=== PATIENT | male | born 1985 | race Caucasian/White ===

== ENCOUNTER 2020-09-30 18:49 | Emergency (ER) | payer OTHER, SELFPAY ==
--- NOTE | 2020-09-30 | ECG_ITS ---
Test Reason : CHEST PAIN Blood Pressure : / mmHG Vent. Rate : 060 BPM Atrial Rate : 060 BPM P-R Int : 176 ms QRS Dur : 090 ms QT Int : 414 ms P-R-T Axes : 033 004 036 degrees QTc Int : 414 ms Normal sinus rhythm with sinus arrhythmia Possible Left atrial enlargement Borderline ECG No previous ECGs available Referred By: Generic ED Physician Electronically Signed By:ISIAH MERCER MD
--- NOTE | ~2020-09-30 | XR_ITS ---
EXAMINATION: XR CHEST CLINICAL INFORMATION: Chest pain. COMPARISON: None TECHNIQUE: 2 views of the chest were obtained. FINDINGS: No significant abnormality is noted involving the heart, lungs, mediastinum, bony thorax or soft tissues. XR/XR chest 2V IMPRESSION: No acute cardiopulmonary process.
[2020-09-30 19:10] VITALS: BP 140/69; PULSE 86; RESP 18; TEMP 37; O2SAT 98; BMI 27.7
[2020-09-30 20:36] LABS: MANUAL DIFF FLAG NO
[2020-09-30 20:37] LABS: Basophils Percent Auto 0.4 % (0-2); Eosinophils Absolute Auto 0.1 X10*3/uL (0.0-0.4); Eosinophils Percent Auto 1.2 % (0-4); Hematocrit 51.5 % (42-52); Hemoglobin 18.1 g/dl (14.0-18.0); Imm Gran Abs Auto 0.03 X10*3/uL (0.00-0.03); Imm Gran Pct Auto 0.4 % (0.0-0.4); Lymphocytes Percent Auto 39.9 % (20-40); Mean Corpuscular HGB Conc 35.1 g/dl (31.0-36.0); Mean Corpuscular Hemoglobin 30.9 pg (27.0-33.0); Monocytes Absolute Auto 0.7 X10*3/uL (0.1-1.2); Monocytes Percent Auto 8.8 % (2-11); Neutrophils Absolute Auto 3.7 X10*3/uL (2.0-8.3); Neutrophils Percent Auto 49.3 % (45-73); Platelet Count 259 X10*3/uL (160-400); Red Blood Count 5.85 X10*6/uL (4.60-5.80); Red Cell Distribution Width 11.6 % (11.0-16.0); White Blood Count 7.4 X10*3/uL (4.8-10.8)
[2020-09-30 21:01] LABS: Anion Gap 11 (12-20); Blood Urea Nitrogen 12 mg/dL (9-16); Calcium 9.2 mg/dL (8.4-10.2); Carbon Dioxide 29 mmol/L (22-29); Chloride 105 mmol/L (96-108); Creatinine Clr Calc Pharmacy 123.2; Estimated Glomerular Filt Rate > 60; Glucose Random 86 mg/dL (60-115); Potassium 4.4 mmol/L (3.3-5.1); Sodium 141 mmol/L (135-145)
[2020-09-30 21:09] LABS: Troponin-I High Sensitivity < 3.5 ng/L (<3.5-35.0)
[2020-09-30 21:56] VITALS: BP 128/83; PULSE 67; RESP 18; TEMP 36.7; O2SAT 99
--- NOTE | 2020-09-30 21:57 | ED_ITS ---
HPI - Chest Pain General Chief Complaint: Chest Pain Stated Complaint: chest pain Time Seen by Provider: 09/30/20 21:28 Source: patient Mode of arrival: ambulatory History of Present Illness HPI narrative: This is a 34-year-old male without significant past medical history who presents with 2 episodes of left-sided, pinching type chest pain that worsened with deep inspiration but denies any association with dizziness, radiation, nausea, shortness of breath, or diaphoresis. He states that these episodes have occurred while he is at work and denies any recent travel or calf swelling/pain. MD complaint: chest pain Related Data Allergies Allergy/AdvReac Type Severity Reaction Status Date / Time No Known Allergies Allergy Unverified 04/04/20 19:37 [No Known Allergies*] Review of Systems Review of Systems: Pertinent positives and negatives as stated in HPI 10 point review of systems is otherwise negative. PMFSH Past Medical History Source: nursing notes reviewed Medical History No known health problems Social History Social History Advance Directives: No Advance Directives Information Provided: No Physical Exam Vital Signs: Vital Signs: Last Vital Signs Temp 98.0 F 09/30/20 21:56 Pulse 67 09/30/20 21:56 Resp 18 09/30/20 21:56 BP 128/83 09/30/20 21:56 Pulse Ox 99 09/30/20 21:56 Body Mass Index 27.7 VITAL SIGNS: Reviewed. GENERAL: Well developed, well nourished, in no acute distress. HEAD: Normocephalic/atraumatic, NOSE: Nares patent bilateral OROPHARYNX: no oral lesions noted, posterior pharynx clear NECK: Supple, no adenopathy LUNGS: Normal breath sounds. No adventitious sounds or accessory muscle use. SpO2<98> CHEST WALL: No pain on palpation over left chest, no crepitus, no deformities CARDIOVASCULAR: Regular rate and rhythm without noted murmurs ABDOMEN: Soft, non-tender, non-distended with bowel sounds. NEUROLOGIC: Alert and oriented x 4. Course Course Course Narrative: This is a 34-year-old male with history and clinical presentation most consistent with costochondritis and doubt cardiopulmonary etiology or PE. On review of all investigations there are no acute findings to point towards the latter differentials. Patient will be discharged in stable condition. MDM - Chest Pain Lab Data Result diagrams: 09/30/20 20:30 09/30/20 20:30 Labs: Lab Results 09/30/20 09/30/20 09/30/20 Range/Units 20:30 20:30 20:30 WBC 7.4 (4.8-10.8) X10*3/uL RBC 5.85 H (4.60-5.80) X10*6/uL Hgb 18.1 H (14.0-18.0) g/dl Hct 51.5 (42-52) % MCV 88.0 (80-98) fL MCH 30.9 (27.0-33.0) pg MCHC 35.1 (31.0-36.0) g/dl RDW 11.6 (11.0-16.0) % Plt Count 259 (160-400) X10*3/uL MPV 10.0 (9.4-12.4) fL Immature Gran % (Auto) 0.4 (0.0-0.4) % Neut % (Auto) 49.3 (45-73) % Lymph % (Auto) 39.9 (20-40) % [place] % (Auto) 8.8 (2-11) % Eos % (Auto) 1.2 (0-4) % Baso % (Auto) 0.4 (0-2) % Lymph # (Auto) 3.0 (1.2-4.9) X10*3/uL [place] # (Auto) 0.7 (0.1-1.2) X10*3/uL Eos # (Auto) 0.1 (0.0-0.4) X10*3/uL Baso # (Auto) 0.0 (0.0-0.2) X10*3/uL Abs Immat Gran (auto) 0.03 (0.00-0.03) X10*3/uL Absolute Neuts (auto) 3.7 (2.0-8.3) X10*3/uL Absolute Nucleated RBC 0.000 (0.0-0.012) X10*3/uL Nucleated RBC % (auto) 0.0 (0.0-0.2) /100WBC D-Dimer < 200 NG/ML Hold Blue Top SEE NOTE Sodium 141 (135-145) mmol/L Potassium 4.4 (3.3-5.1) mmol/L Chloride 105 (96-108) mmol/L Carbon Dioxide 29 (22-29) mmol/L Anion Gap 11 L (12-20) BUN 12 (9-16) mg/dL Creatinine 0.83 (0.5-1.4) mg/dL Estim Creat Clear Calc 123.2 Estimated GFR > 60 Random Glucose 86 (60-115) mg/dL Calcium 9.2 (8.4-10.2) mg/dL Troponin I High Sens (<3.5-35.0) ng/L 09/30/20 Range/Units 20:30 WBC (4.8-10.8) X10*3/uL RBC (4.60-5.80) X10*6/uL Hgb (14.0-18.0) g/dl Hct (42-52) % MCV (80-98) fL MCH (27.0-33.0) pg MCHC (31.0-36.0) g/dl RDW (11.0-16.0) % Plt Count (160-400) X10*3/uL MPV (9.4-12.4) fL Immature Gran % (Auto) (0.0-0.4) % Neut % (Auto) (45-73) % Lymph % (Auto) (20-40) % [place] % (Auto) (2-11) % Eos % (Auto) (0-4) % Baso % (Auto) (0-2) % Lymph # (Auto) (1.2-4.9) X10*3/uL [place] # (Auto) (0.1-1.2) X10*3/uL Eos # (Auto) (0.0-0.4) X10*3/uL Baso # (Auto) (0.0-0.2) X10*3/uL Abs Immat Gran (auto) (0.00-0.03) X10*3/uL Absolute Neuts (auto) (2.0-8.3) X10*3/uL Absolute Nucleated RBC (0.0-0.012) X10*3/uL Nucleated RBC % (auto) (0.0-0.2) /100WBC D-Dimer NG/ML Hold Blue Top Sodium (135-145) mmol/L Potassium (3.3-5.1) mmol/L Chloride (96-108) mmol/L Carbon Dioxide (22-29) mmol/L Anion Gap (12-20) BUN (9-16) mg/dL Creatinine (0.5-1.4) mg/dL Estim Creat Clear Calc Estimated GFR Random Glucose (60-115) mg/dL Calcium (8.4-10.2) mg/dL Troponin I High Sens < 3.5 (<3.5-35.0) ng/L Discharge Plan Discharge Clinical Impression: Atypical chest pain, Acute costochondritis Patient Disposition: Home, Self-Care Instructions: Chest Pain (ED), Costochondritis (ED) Additional Instructions: Recommend using [id number] Tylenol/ibuprofen for pain control as directed on the outside packaging. There is a possibility that this is acid reflux and recommend utilizing zgut-ehy-ohqdvic antacids, Tums/Rolaids/Mylanta. Please follow-up with your primary care provider in the next 2-3 days. Do not hesitate to return to the emergency department for any acute worsening of your symptoms. Referrals: Physician,Unknown [Primary Care Provider] - 2 days Stand Alone Forms: Work/School Release
[2020-09-30 22:07] LABS: D Dimer < 200 NG/ML
[2020-09-30 22:33] VITALS: PULSE 67
== END 2020-09-30 22:33 | disposition home or self-care (01) ==
PROVIDERS: Emergency Provider Student in an Organized Health Care Education/Training Program
DX: R07.89 Other chest pain (principal); M94.0 Chondrocostal junction syndrome [Tietze]
CPT/HCPCS: 36415; 71046; 80048; 84484; 85025; 85379; 93005; 99283; 99284

== ENCOUNTER 2022-01-11 20:36 | Emergency (ER) | payer OTHER, SELFPAY ==
--- NOTE | ~2022-01-11 | XR_ITS ---
EXAMINATION: XR cervical spine 3V, XR thoracic spine 2V CLINICAL INFORMATION: Reason for Exam pain COMPARISON: None. TECHNIQUE: 3 view series thoracic spine; 4 view series cervical spine. FINDINGS: Cervical spine: Lateral view demonstrates the spine from craniocervical junction to the level of T1. Vertebral body height and alignment are normal in appearance. No gross prevertebral soft tissue inflammatory changes identified. The visualized lung apices are clear. No arthropathic changes identified. Thoracic spine: The upper thoracic spine is suboptimally visualized on the lateral view secondary to overlying opacities. The visualized thoracic vertebral bodies are normal in height, spacing and alignment. Minimal convex rightward curvature centered at the thoracolumbar junction and most likely represents curvature related to positioning. Visualized ribs and lungs are normal in appearance. No paraspinous masses or gross soft tissue inflammatory changes identified. Visualized bowel gas pattern demonstrates no abnormalities. XR/XR thoracic spine 2V IMPRESSION: Cervical spine: *No acute abnormalities of the cervical spine. No cervical arthropathic changes or cervical spondylosis identified. Thoracic spine: No acute abnormalities identified.
--- NOTE | ~2022-01-11 | XR_ITS ---
EXAMINATION: XR cervical spine 3V, XR thoracic spine 2V CLINICAL INFORMATION: Reason for Exam pain COMPARISON: None. TECHNIQUE: 3 view series thoracic spine; 4 view series cervical spine. FINDINGS: Cervical spine: Lateral view demonstrates the spine from craniocervical junction to the level of T1. Vertebral body height and alignment are normal in appearance. No gross prevertebral soft tissue inflammatory changes identified. The visualized lung apices are clear. No arthropathic changes identified. Thoracic spine: The upper thoracic spine is suboptimally visualized on the lateral view secondary to overlying opacities. The visualized thoracic vertebral bodies are normal in height, spacing and alignment. Minimal convex rightward curvature centered at the thoracolumbar junction and most likely represents curvature related to positioning. Visualized ribs and lungs are normal in appearance. No paraspinous masses or gross soft tissue inflammatory changes identified. Visualized bowel gas pattern demonstrates no abnormalities. XR/XR cervical spine 3V IMPRESSION: Cervical spine: *No acute abnormalities of the cervical spine. No cervical arthropathic changes or cervical spondylosis identified. Thoracic spine: No acute abnormalities identified.
[2022-01-11 21:17] VITALS: BP 115/77; PULSE 88; RESP 18; TEMP 36.1; O2SAT 99; BMI 27.7
--- NOTE | 2022-01-11 22:40 | ED.NECK ---
HPI - Neck Pain/Injury General Chief Complaint: Neck Pain/Injury Stated Complaint: Neck and shoulder pain Time Seen by Provider: 01/11/22 22:31 Source: patient Mode of arrival: ambulatory Limitations: no limitations History of Present Illness HPI Narrative: 36-year-old male presents with 1 day of neck and left shoulder muscular pain. Woke up with muscle spasms after sleeping wrong. States that he cannot turn his neck or lift his arm because of the muscle pain. He does not report trauma, repetitive motion, or injury. Denies fevers, chills, nausea, vomiting, dizziness, lightheadedness, or weakness. complaint: neck pain Onset (ago): day(s) (1) Place: home Radiation: right lateral and right shoulder Severity: moderate Severity scale (1-10): 6 Quality: spasming Duration: constant Relieving factors: none Exacerbating factors: movement of extremity and movement of neck Context: unknown Associated symptoms: none Treatments prior to arrival: none Related Data Previous Rx's Medication Instructions Recorded cyclobenzaprine 10 mg tablet 10 mg PO TID PRN muscle spasm #14 01/11/22 tabs Allergies Allergy/AdvReac Type Severity Reaction Status Date / Time No Known Allergies Allergy Unverified 04/04/20 19:37 [No Known Allergies*] Review of Systems Review of Systems: Constitutional: No Fever, No Chills ENT/Mouth: No Ear Pain, No Hoarseness, No sore throat Eyes: No Eye Pain, No Swelling, No Redness, No Foreign Body Cardiovascular: No Chest Pain, No SOB Respiratory: No Cough, No Dyspnea Gastrointestinal: No Nausea, No Vomiting, No Diarrhea, No abdominal Pain Genitourinary: No Dysuria, No Hematuria Musculoskeletal: positive neck and left shoulder pain, No Myalgias, No Joint Swelling Skin: No Skin lacerations, No rash Neuro: No Weakness, No Numbness, No Paresthesias, No Loss of Consciousness, No Dizziness, No Headache Psych: No Anxiety/Panic, No Depression Heme/Lymph: no easy bruising, no Lymphadenopathy Endocrine: No Polyuria, No Polydipsia Yes all other systems are reviewed and are negative [facility] Past Medical History Attestation statement: The following information was validated with the patient. Source: old records reviewed Medical History No known health problems Social History Social History Alcohol intake: never Advance Directives: No Advance Directives Information Provided: No Physical Exam Vital Signs: Vital Signs: Last Vital Signs Temp 96.9 F 01/11/22 21:17 Pulse 88 01/11/22 21:17 Resp 18 01/11/22 21:17 BP 115/77 01/11/22 21:17 Pulse Ox 99 01/11/22 21:17 O2 Del Method 01/11/22 21:17 BMI result Body Mass Index 27.7 Appearance: Alert. Oriented X3. Mild distress. Eyes: Pupils equal, round and reactive to light. ENT: Pharynx normal. Neck: Neck supple. No vertebral tenderness. Spasming to the left trapezius. Mild torticollis noted. CVS: Normal heart rate and rhythm. Pulses normal. Respiratory: No respiratory distress. Breath sounds normal. Abdomen: Soft and nontender. Skin: Skin warm and dry. Normal skin color. Normal skin turgor. Extremities: No lower extremity edema. Gait well balanced well coordinated. Neuro: No motor deficit. No sensory deficit. Cranial nerves 2-12 intact Course Course Course Narrative: 36-year-old male presents with torticollis after sleeping wrong. Has some significant spasm to the trapezius to the left side. Patient does have full range of motion although painful because of spasming. I did try to reduce spasming with trigger point muscle release. Mildly effective. He does have full range of motion to all extremities. No crepitus. No tenderness to the vertebral spine. No nuchal rigidity. Brisk capillary refill and equal pulses to all extremities. No indication of cauda equina. Afebrile. Appears nontoxic. Cervical spine and thoracic spine x-rays are negative for acute findings. Plan is for cyclobenzaprine and Toradol injection. Was suggested that patient have physical therapy or massage therapy to help release muscle spasming. Patient verbalized understanding of and agrees plan of care discharge home. Verbalized understanding of signs and symptoms indicating need for emergent intervention. MDM - Neck Pain/Injury Differential Diagnosis Differential diagnosis: Likely disc disorder of cervical region and strain of neck muscle Medical Records Attestation: I reviewed the patient's medical records. Imaging Data Cervical and thoracic spine x-ray.: Attestation: I personally reviewed and interpreted this imaging study as follows: Radiologist's impression: EXAMINATION: XR cervical spine 3V, XR thoracic spine 2V CLINICAL INFORMATION: Reason for Exam pain COMPARISON: None. TECHNIQUE: 3 view series thoracic spine; 4 view series cervical spine. FINDINGS: Cervical spine: Lateral view demonstrates the spine from craniocervical junction to the level of T1. Vertebral body height and alignment are normal in appearance. No gross prevertebral soft tissue inflammatory changes identified. The visualized lung apices are clear. No arthropathic changes identified. Thoracic spine: The upper thoracic spine is suboptimally visualized on the lateral view secondary to overlying opacities. The visualized thoracic vertebral bodies are normal in height, spacing and alignment. Minimal convex rightward curvature centered at the thoracolumbar junction and most likely represents curvature related to positioning. Visualized ribs and lungs are normal in appearance. No paraspinous masses or gross soft tissue inflammatory changes identified. Visualized bowel gas pattern demonstrates no abnormalities. XR/XR cervical spine 3V IMPRESSION: Cervical spine: *No acute abnormalities of the cervical spine. No cervical arthropathic changes or cervical spondylosis identified. ? Thoracic spine: No acute abnormalities identified. ? Discharge Plan Discharge Clinical Impression: Strain of neck muscle, Torticollis Patient Disposition: Home, Self-Care Instructions: Cervical Strain (ED), Muscle Strain (ED), Spasmodic Torticollis (ED) Additional Instructions: You were evaluated for neck pain and muscle spasms. Your x-rays are negative for acute findings requiring emergent intervention. There are no fractures dislocations or subluxations to the cervical and thoracic spine. Please take cyclobenzaprine every 8 hours as needed for muscle spasms. This medication's a muscle relaxer. Do not drive or operate machinery while taking this medication. This medication can delay reaction time, increased risk for drowsiness, and increased risk for falls. Drink plenty of fluids while taking this medication. You may consider massage and physical therapy to help alleviate symptoms Thank you for choosing this emergency department for evaluation. Please follow-up with primary care physician as needed. Return to the emergency department for any new, concerning, or worsening symptoms. Prescriptions: New cyclobenzaprine 10 mg tablet 10 mg PO TID PRN (Reason: muscle spasm) Qty: 14 0RF Interventions: ED Discharge Assessment Last Done: 01/12/22 00:36 Discharge Date/Time: 01/12/22 00:37
[2022-01-12] MEDS: Ketorolac Tromethamine 60 MG/2 ML VIAL IM (00:17)
== END 2022-01-12 00:37 | disposition home or self-care (01) ==
PROVIDERS: Emergency Provider Emergency Medicine; PCP Hospitalist
DX: S16.1XXA Strain of muscle, fascia and tendon at neck level, initial encounter (principal); M43.6 Torticollis; X58.XXXA Exposure to other specified factors, initial encounter; Y93.9 Activity, unspecified; Y92.009 Unspecified place in unspecified non-institutional (private) residence as the place of occurrence of the external cause; Y99.9 Unspecified external cause status
CPT/HCPCS: 72040; 72070; 96372; 99283; 99284; J1885

== ENCOUNTER 2023-05-25 10:10 | Emergency (ER) | payer OTHER, SELFPAY ==
[2023-05-25 10:52] VITALS: BP 130/55; PULSE 73; RESP 18; TEMP 36.7; O2SAT 99; BMI 28.6
[2023-05-25 11:11] LABS: MANUAL DIFF FLAG NO
[2023-05-25 11:15] LABS: Basophils Percent Auto 0.4 % (0-2); Eosinophils Absolute Auto 0.1 X10*3/uL (0.0-0.4); Hematocrit 52.5 % (42.0-52.0); Hemoglobin 18.6 g/dl (14.0-18.0); Imm Gran Abs Auto 0.02 X10*3/uL (0.00-0.03); Imm Gran Pct Auto 0.3 % (0.0-0.4); Lymphocytes Absolute Auto 2.3 X10*3/uL (1.2-4.9); Lymphocytes Percent Auto 28.6 % (20-40); Mean Corpuscular HGB Conc 35.4 g/dl (31.0-36.0); Mean Corpuscular Volume 87.5 fL (80.0-98.0); Mean Platelet Volume 9.6 fL (9.4-12.4); Monocytes Absolute Auto 0.8 X10*3/uL (0.1-1.2); Monocytes Percent Auto 9.6 % (2-11); Neutrophils Absolute Auto 4.7 x10*3/uL (2.0-8.3); Neutrophils Percent Auto 60.1 % (45-73); Platelet Count 270 X10*3/uL (160-400); Red Cell Distribution Width 11.5 % (11.0-16.0); White Blood Count 7.9 X10*3/uL (4.8-10.8)
[2023-05-25 11:29] LABS: Alanine Aminotransferase 24 U/L (0-40); Albumin Level 4.7 g/dL (3.5-5.0); Alkaline Phosphatase 49 U/L (39-117); Anion Gap 12 (12-20); Aspartate Amino Transferase 20 U/L (5-37); Bilirubin Direct 0.6 mg/dL (0.0-0.5); Bilirubin Total 2.1 mg/dL (0.0-1.0); Blood Urea Nitrogen 15 mg/dL (9-16); Calcium 9.2 mg/dL (8.4-10.2); Carbon Dioxide 26 mmol/L (22-29); Chloride 107 mmol/L (96-108); Creatinine Clr Calc Pharmacy 130.8; Estimated Glomerular Filt Rate > 60; Glucose Random 94 mg/dL (60-115); Lipase 36 U/L (8-78); Potassium 4.5 mmol/L (3.3-5.1); Sodium 140 mmol/L (135-145)
[2023-05-25 12:02] VITALS: BP 120/66; PULSE 72; RESP 16; TEMP 36.4; O2SAT 98
[2023-05-25 12:12] LABS: Appearance Urine Clear; Color Urine Yellow; Glucose Urine UA Negative (Negative); Leukocyte Esterase Urine Negative (Negative); Nitrite Urine Negative (Negative); Specific Gravity - Urine >= 1.030 (1.005-1.025); UMIC TRIGGER UACC YES; Urine Blood Trace (Negative); Urine Ketones Negative (Negative); Urine Protein Negative (Neg-Trace)
[2023-05-25 12:15] LABS: Bacteria Urine None Seen (None Seen); Hyaline Casts Urine 0-2 /LPF (0-2); Squamous Epithelial Cell Urine 0-2 /HPF (0-2); WBC Urine 0-5 /HPF (0-5)
--- NOTE | 2023-05-25 13:10 | ECG_ITS ---
Test Reason : ABD PAIN Blood Pressure : / mmHG Vent. Rate : 062 BPM Atrial Rate : 062 BPM P-R Int : 166 ms QRS Dur : 090 ms QT Int : 404 ms P-R-T Axes : 036 -04 049 degrees QTc Int : 410 ms Normal sinus rhythm Low voltage QRS Normal ECG When compared with ECG of 30-SEP-2020 21:32, No significant change was found Referred By: Hannah Patel Electronically Signed By:SARANYA CERVANTES MD
--- NOTE | 2023-05-25 13:11 | ED.ABDPAIN ---
HPI - Abdominal Pain General Chief Complaint: Abdominal Pain Stated Complaint: Abd pain after eating Time Seen by Provider: 05/25/23 13:02 Source: patient Mode of arrival: ambulatory Limitations: no limitations History of Present Illness HPI narrative: Patient comes to emergency room complaining epigastric pain that gets worse when he eats or drinks anything. Patient states that he intermittently gets nauseous, no vomiting or no diarrhea, patient complaining of a burning sensation in the epigastric area, especially after drinking coffee. At night, patient states that he feels bloated. Related Data Previous Rx's Medication Instructions Recorded cyclobenzaprine 10 mg tablet 10 mg PO TID PRN muscle spasm #14 01/11/22 tabs hyoscyamine sulfate 0.125 mg tablet 0.125 mg PO QID PRN dyspepsia #14 05/25/23 tabs omeprazole 20 mg capsule,delayed 20 mg PO DAILY #30 caps 05/25/23 release ondansetron HCl 4 mg tablet 4 mg PO Q6H PRN nausea and 05/25/23 vomiting #10 tabs Allergies Allergy/AdvReac Type Severity Reaction Status Date / Time No Known Allergies Allergy Verified 05/25/23 10:54 [No Known Allergies*] Review of Systems Review of Systems Constitutional : No Weight loss, No Fever, No Chills, No Night Sweats, No Fatigue, No Malaise ENT/Mouth : No Hearing loss, No Ear Pain, No Nasal Congestion, No Sinus Pain, No Hoarseness, No sore throat, No Rhinorrhea, No Swallowing Difficulty Eyes: No Eye Pain, No Swelling, No Redness, No Foreign Body, No Discharge, No Vision Changes Cardiovascular : No Chest Pain, No SOB, No Dyspnea on Exertion, No Orthopnea, No Edema, No Palpitations Respiratory : No Cough, No Sputum, No Wheezing, No Smoke Exposure, No Dyspnea Gastrointestinal : No Nausea, No Vomiting, No Diarrhea, No Constipation, complaining of epigastric burning sensation worse after eating or drinking Genitourinary : no irregular bleeding, No Dysuria, No Urinary Frequency, No Hematuria, No Urinary Incontinence, No Urgency, No Flank Pain, No Urinary Flow Changes, No Hesitancy Musculoskeletal : No joint pain, No Myalgias, No Joint Swelling Skin : No Skin Lesions, No rash Neuro : No Weakness, No Numbness, No Paresthesias, No Loss of Consciousness, No Dizziness, No Headache Psych : No Anxiety/Panic, No Depression, No SI/HI/AH/VH, No Social Issues, Heme/Lymph: No Bruising, No Bleeding,No Lymphadenopathy Endocrine : No Polyuria, No Polydipsia, No Temperature Intolerance [facility] Past Medical History Medical History No known health problems Social History Social History Alcohol intake: never Advance Directives: No Advance Directives Information Provided: No Physical Exam ED Vital Signs: Vital Signs - 24 hr 05/25/23 10:52 05/25/23 12:02 Temperature 98.0 F 97.5 F Pulse Rate 73 72 Respiratory Rate 18 16 Blood Pressure 130/55 L 120/66 Pulse Oximetry 99 98 Oxygen Delivery Method Room Air Room Air BMI result Body Mass Index 28.6 Const Other: Appearance: Alert. Oriented X3. No acute distress. Well-appearing Eyes: Pupils equal, round and reactive to light. ENT: Pharynx normal. Neck: Normal inspection. Neck supple. No lymph nodes noted. No crepitus CVS: Normal heart rate and rhythm. Pulses normal. Normal S1 and S2 Respiratory: No respiratory distress. Breath sounds normal. No Wheezing. No rales Abdomen: Soft , mild discomfort to palpation in epigastric area, no rebound, no guarding, no distention Skin: Skin warm and dry. Normal skin color. Normal skin turgor. Extremities: No lower extremity edema. No Lacerations. No Rash Neuro: Oriented X 3. No motor deficit. No sensory deficit. Moving all extremities. No slurred speech. CN 2 through 12 grossly intact Psych: calm, cooperative, normal affect Medical Decision Making Medical Decision Making MDM Narrative: -interpretation of labs, hemoglobin and hematocrit elevated, chronic. LFTs and lipase normal. -physical exam is reassuring -my interpretation of EKG, normal sinus rhythm, heart rate 62, no ST segment depression elevation, no T-wave inversion, QTC 410 -I discussed with the patient given his history/symptoms, it is likely that patient may have peptic ulcer disease, gastritis/gastric ulcer/duodenal ulcer -patient's physical exam is reassuring, perforation not suspected. Lipase normal pancreatitis not suspected -patient was given p.o. viscous lidocaine and Maalox and Pepcid Differential Diagnosis Differential Diagnoses: The differential diagnosis associated with the presentation includes (As above) Lab Data MDM Lab Attestation statement: I reviewed the patient's lab results. 05/25/23 11:07 05/25/23 11:07 Labs: Lab Results 05/25/23 05/25/23 Range/Units 11: 12:05 WBC 7.9 (4.8-10.8) X10*3/uL RBC 6.00 H (4.60-5.80) X10*6/uL Hgb 18.6 H (14.0-18.0) g/dl Hct 52.5 H (42.0-52.0) % MCV 87.5 (80.0-98.0) fL MCH 31.0 (27.0-33.0) pg MCHC 35.4 (31.0-36.0) g/dl RDW 11.5 (11.0-16.0) % Plt Count 270 (160-400) X10*3/uL MPV 9.6 (9.4-12.4) fL Immature Gran % (Auto) 0.3 (0.0-0.4) % Neut % (Auto) 60.1 (45-73) % Lymph % (Auto) 28.6 (20-40) % [place] % (Auto) 9.6 (2-11) % Eos % (Auto) 1.0 (0-4) % Baso % (Auto) 0.4 (0-2) % Lymph # (Auto) 2.3 (1.2-4.9) X10*3/uL [place] # (Auto) 0.8 (0.1-1.2) X10*3/uL Eos # (Auto) 0.1 (0.0-0.4) X10*3/uL Baso # (Auto) 0.0 (0.0-0.2) X10*3/uL Abs Immat Gran (auto) 0.02 (0.00-0.03) X10*3/uL Absolute Neuts (auto) 4.7 (2.0-8.3) x10*3/uL Absolute Nucleated RBC 0.000 (0.0-0.012) X10*3/uL Nucleated RBC % (auto) 0.0 (0.0-0.2) /100WBC Sodium 140 (135-145) mmol/L Potassium 4.5 (3.3-5.1) mmol/L Chloride 107 (96-108) mmol/L Carbon Dioxide 26 (22-29) mmol/L Anion Gap 12 (12-20) BUN 15 (9-16) mg/dL Creatinine 0.77 (0.5-1.4) mg/dL Estim Creat Clear Calc 130.8 Estimated GFR > 60 Random Glucose 94 (60-115) mg/dL Calcium 9.2 (8.4-10.2) mg/dL Total Bilirubin 2.1 H (0.0-1.0) mg/dL Direct Bilirubin 0.6 H (0.0-0.5) mg/dL AST 20 (5-37) U/L ALT 24 (0-40) U/L Alkaline Phosphatase 49 (39-117) U/L Total Protein 8.0 (6.5-8.0) g/dL Albumin 4.7 (3.5-5.0) g/dL Lipase 36 (8-78) U/L Urine Color Yellow Urine Appearance Clear Urine pH 6.0 (5.0-9.0) Ur Specific [place] >= 1.030 H (1.005-1.025) Urine Protein Negative (Neg-Trace) mg/dL Urine Glucose (UA) Negative (Negative) mg/dL Urine Ketones Negative (Negative) mg/dL Urine Blood Trace H (Negative) Urine Nitrite Negative (Negative) Ur Leukocyte Esterase Negative (Negative) Urine RBC 6-10 H (0-2) /HPF Urine WBC 0-5 (0-5) /HPF Ur Squamous Epith Cells 0-2 (0-2) /HPF Urine Bacteria None Seen (None Seen) Hyaline Casts 0-2 (0-2) /LPF Independent Interpretation I performed an independent interpretation of an: EKG Medications Administered Discontinued Medications Generic Name Dose Route Start Last Admin Trade Name Freq PRN Reason Stop Dose Admin Al Hydroxide/Mg Hydroxide 30 ml 05/25/23 13:10 05/25/23 13:33 Magnesium Hydrox/Alum Hydrox 30 Ml Oral.Susp PO 05/25/23 13:11 30 ml ONCE ONE Administration Famotidine 20 mg 05/25/23 13:10 05/25/23 13:33 Famotidine 20 Mg Tablet PO 05/25/23 13:11 20 mg ONCE ONE Administration Lidocaine HCl 15 ml 05/25/23 13:10 05/25/23 13:33 Lidocaine Hcl Viscous 2 % 15 Ml Solution MUCOUS MEM 05/25/23 13:11 15 ml ONCE ONE Administration Discharge Plan Discharge Clinical Impression: Gastritis Patient Disposition: Home, Self-Care Instructions: Gastritis (ED) Additional Instructions: Please follow-up with your primary care physician tomorrow. If you have any worsening or new symptoms, please return to the emergency room or call 911 Prescriptions: New omeprazole 20 mg capsule,delayed release(DR/EC) 20 mg PO DAILY Qty: 30 1RF hyoscyamine sulfate 0.125 mg tablet 0.125 mg PO QID PRN (Reason: dyspepsia) Qty: 14 0RF ondansetron HCl 4 mg tablet 4 mg PO Q6H PRN (Reason: nausea and vomiting) Qty: 10 0RF No Action cyclobenzaprine 10 mg tablet 10 mg PO TID PRN (Reason: muscle spasm) Qty: 14 0RF Referrals: Bhargavi Coreas MD [Physician] - 05/31/23 Interventions: ED Discharge Assessment Last Done: 05/25/23 13:35 Discharge Date/Time: 05/25/23 13:38
[2023-05-25] MEDS: Lidocaine HCl Viscous 2 % 15 ML SOLUTION MUCOUS MEM (13:33)
[2023-05-25] MEDS: Famotidine 20 MG TABLET PO (13:33)
[2023-05-25] MEDS: Magnesium Hydrox/Alum Hydrox 30 ML ORAL.SUSP PO (13:33)
== END 2023-05-25 13:38 | disposition home or self-care (01) ==
PROVIDERS: Emergency Provider Emergency Medicine; PCP Hospitalist
DX: K29.70 Gastritis, unspecified, without bleeding (principal)
CPT/HCPCS: 36415; 80048; 80076; 81001; 83690; 85025; 93005; 99284

== ENCOUNTER → 2024-02-10 13:18 | Outpatient (BNVA) | payer SELFPAY | PROVIDERS: PCP Hospitalist; Visit Provider Physician Assistant Medical | DX: Z02.79 Encounter for issue of other medical certificate (principal) ==